=== PATIENT | male | born 2005 | race Caucasian/White ===

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

== ENCOUNTER 2023-08-23 21:31 | Emergency (ER) | payer BC, MEDICAID ==
[~2023-08-23] VITALS: Ht 175.3 cm; Wt 81.6 kg
[2023-08-23 23:44] VITALS: BP 131/72; TEMP 98.4; O2SAT 99
== END 2023-08-23 23:44 | disposition home or self-care (01) ==
LOC: ER 21:35
DX: S93.402A Sprain of unspecified ligament of left ankle, initial encounter (principal); X50.1XXA Overexertion from prolonged static or awkward postures, initial encounter; Y93.67 Activity, basketball; Y92.89 Other specified places as the place of occurrence of the external cause; Y99.8 Other external cause status
CPT/HCPCS: 73610-TC